=== PATIENT | male | born 1945 | race Caucasian/White ===

== ENCOUNTER 2016-08-29 13:34 | Observation (INO) | payer BC ==
--- NOTE | ~2016-08-29 | HP ---
History And Physical [place] [id number] [facility] [place]. [address] NAME: YURI AKINS : 49 STATUS : ADM Kevon PAT#: [id number] AGE: 71 ADM/REG DATE : 08/29/16 MR#: [id number] REPORT SERV DATE: 08/30/16 DICTATED BY: WILNER AMEZCUA DATE: 08/30/16 REPORT STATUS : Draft TRANSCRIBED BY: IMELDA DATE: 08/30/16 DATE OF ADMISSION: 08/29/2016 PSYCHOLOGIST: Ady Montes M.D. FRAMING CARPENTER: Enriqueta Kevin M.D. NEW PATIENT APPOINTMENT: 09/21/2016. CHIEF COMPLAINT: Heart racing. 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 The patient states that he has noticed his heart rate elevated since 08/28/2016, he was at a baseball game. He states he had forgotten to take his BuSpar and his Diovan during the game and that he noticed his heart rate was greater than 120. He and his went home, took his BuSpar and his Diovan, heart rate remained 120 plus, and his blood pressure was 160/100. He took clonidine 0.1 mg, at that time, he remained anxious. He states that his heart rate remained elevated at all day. He was able to fall asleep that evening, but when he awoke on 08/29/2016, his heart rate remained 125 beats per minute per his Fitbit. He went to the [facility], and was recommended that he come to the emergency room for further evaluation and treatment. In our emergency room, he was administered adenosine 6 mg IV with Cardizem bolus of 20 mg, and he converted back to sinus rhythm. The patient denies any chest pain, pressure, or tightness with this event. No shortness of breath, nausea, diaphoresis, dizziness, or belching. The patient denies any personal history of myocardial infarction, stroke, DVT, or pulmonary embolus. The patient denies any recent fever or chills. Describes rare episodes of palpitations most recently approximately five months ago, not evaluated or treated. No syncopal episodes. Denies PND or orthopnea. CHADS-VASc score of 2 for age and hypertension. PAST MEDICAL HISTORY: 1. Hypertension. 2. Anxiety. 3. Depression. 4. Cholesterol, followed by PCP with reported elevated triglycerides. 5. Denies diabetes. 6. History of prostate cancer status post prostatectomy. 7. History of [place]'s disease (no recurrence). 8. GERD. PAST SURGICAL HISTORY: 1. Prostatectomy. History And Physical [address] [address] NAME: YURI AKINS : 49 STATUS : ADM Kevon PAT#: [id number] AGE: 71 ADM/REG DATE : 08/29/16 MR#: [id number] REPORT SERV DATE: 08/30/16 DICTATED BY: WILNER AMEZCUA DATE: 08/30/16 REPORT STATUS : Draft TRANSCRIBED BY: IMELDA DATE: 08/30/16 2. Arthroscopic repair of the left knee. 3. Planned left total knee replacement in January 2017. SOCIAL HISTORY: He is with two children. 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 Tries to walk 2 miles every other day, but is somewhat limited by his left knee. Walks most recently one week ago without incident. Denies tobacco, alcohol, or illicits. FAMILY HISTORY: Mother with hypertension, of lung cancer. Father at the age of 89. REVIEW OF SYSTEMS: A 14-point review of systems was performed, significant for HPI including history of snoring with the sleep study recommending CPAP, improved with 20 pounds weight loss. Clonidine 0.1 mg p.r.n. Elevated blood pressure. Complaints of nausea, on Depakote. Home blood pressure of 140/80. Otherwise complete review of systems obtained and negative. ALLERGIES: ALLERGY TO CIPRO, STOMACH UPSET; LIPITOR, MUSCLE PAIN; CORN, GI; BUCKWHEAT, GI; AND MILK, LACTOSE INTOLERANT. HOME MEDICATIONS: Amlodipine 10 mg daily, aspirin 81 mg daily, Astelin spray daily, BuSpar 10 mg three times daily, vitamin D 1000 units daily, Klonopin 0.5 mg twice daily, Depakote ER 1500 mg nightly, Flonase spray p.r.n., Remeron 7.5 mg nightly, multivitamin daily, melatonin nightly, omega-3 daily, Diovan 320 mg nightly, and Zantac or Nexium p.r.n. PHYSICAL EXAMINATION: BLOOD PRESSURE: Bilateral blood pressures on arrival, right 141/90, left 122/79, this morning 126/69. PULSE: 51, RESPIRATORY RATE: 18, TEMPERATURE: 97.9, O2 saturation 97% on room air. HEIGHT: 5 feet 11 inches, WEIGHT: 228 pounds. BMI is 32. GENERAL: Cooperative, in no apparent distress. HEENT: Pupils 2 mm, sclera nonicteric. Nares patent. Moist mucous membranes. No xanthelasma. NECK: Trachea midline, no thyromegaly. No JVD. No bruits. LYMPH: No cervical lymphadenopathy. No supraclavicular lymphadenopathy. RESPIRATORY: Unlabored respirations. Breath sounds clear bilaterally to posterior auscultation. No wheezes or rhonchi. CARDIOVASCULAR: Regular rate. No murmur, rub or gallop appreciated. EXTREMITIES: Without edema. Pulses 2+ bilaterally. ABDOMEN: Soft, nontender, nondistended, normal bowel sounds auscultated throughout. No organomegaly. SKIN: Warm, dry extremities. No pallor, or cyanosis. PSYCHIATRIC: Appropriate affect. Alert, oriented x3. LABORATORY DATA: Troponin 0.47 and 0.43. TSH 3.210, free T4 of 1.03. BNP of 112.4, potassium 3.8, BUN 13, creatinine 1.16, glucose 124, and magnesium 2.0. WBC 11.2, hemoglobin 17.8, hematocrit 50.4, and platelet count 169,000. EKG; sinus bradycardia, IRBBB. LAD (previously atrial flutter, 2:1). History And Physical [address] [address] NAME: UYRI AKINS : 49 STATUS : ADM Kevon PAT#: [id number] AGE: 71 ADM/REG DATE : 08/29/16 MR#: [id number] REPORT SERV DATE: 08/30/16 DICTATED BY: WILNER AMEZCUA DATE: 08/30/16 REPORT STATUS : Draft TRANSCRIBED BY: MODL DATE: 08/30/16 Cath 11/2011 (Negus): Normal coronaries, myocardial bridge, mid LAD, EF of 65%. ASSESSMENT AND PLAN: 1. Atrial flutter, 2:1 conduction, now sinus rhythm. Check echocardiogram. Discontinue amlodipine. Begin Cardizem 120 mg daily. Continue Eliquis 5 mg twice daily. Cardiology followup and PCP follow up as scheduled. 2. Hypertension. Monitor blood pressure. Continue ARB. 3. Anxiety. Continue home medications. 4. Troponin 0.47 and 0.43. Remains flat and similar to two troponins of 2011, at which time, the gentleman underwent a cardiac catheterization revealing normal coronary arteries. 5. Anticoagulant. The patient will be discharged home on Eliquis 5 mg twice daily for CHADS-VASc score of 2. ARON/IMELDA FATOU Oropeza, BODY ROLLING MACHINE TENDER-BC / [id number] CC: FATOU Oropeza, BODY ROLLING MACHINE TENDER-BC MD Enriqueta Hunter M.D.
[~2016-08-29 13:34] MED LIST: ADALAT CC60 MG PO; BUSPAR10 PO; BUSPAR15 M1 PO; CAT1 PO; COZAAR100 MG PO; DEPAKOT500 PO; DIOV160 PO; GEODON20 PO; I20 PO; ILA60 PO; MOTRIN IB200 MG PO; NASONEX NAS; NEUR100 PO; NEUR600 PO; NORV5 PO; PRILOSEC40 MG PO; REM15 PO; T PO; VALIUM10 MG PO; VITAMIN D1000 UNI1 PO
[2016-08-29 13:54] LABS: BASOPHILS 0.2 %; BASOPHILS ABSOLUTE 0.02 10/3/uL (0.0-0.16); EOSINOPHILS 0.4 %; EOSINOPHILS ABSOLUTE 0.05 10/3/uL (0.0-0.53); HEMOGLOBIN 17.8 g/dL (13.6-17.8); IMMATURE GRANULOCYTES 0.3 %; IMMATURE GRANULOCYTES ABSOLUTE 0.03 10/3/uL (0.0-0.11); LYMPHOCYTES 25.7 %; LYMPHOCYTES ABSOLUTE 2.88 10/3/uL (0.67-4.30); MEAN CORPUS HGB CONC 35.3 g/dL (32.0-36.0); MEAN CORPUSCULAR HEMOGLOB 31.8 pg (26.0-34.0); MEAN CORPUSCULAR VOLUME 90.2 fL (80-100); MEAN PLATELET VOLUME 11.4 fL (9.2-13.0); MONOCYTES 9.7 %; MONOCYTES ABSOLUTE 1.09 10/3/uL (0.21-1.20); NEUTROPHILS 63.7 %; NEUTROPHILS ABSOLUTE 7.15 10/3/uL (2.02-8.40); PLATELET COUNT 169 10/3/uL (150-400); RBC DISTRIBUTION WIDTH 13.2 % (12.0-16.0); RED CELL COUNT 5.59 10/6/uL (4.7-6.1); WHITE BLOOD CELLS 11.2 10/3/uL (4.5-10.5)
[2016-08-29 13:55] LABS: HEMATOCRIT 50.4 % (40.0-51.0); MANUAL DIFF NO %
[2016-08-29 14:03] LABS: INTERNATIONAL NORMAL RATI 1.1 UNITS (-); PROTIME (NOT ORD) 14.4 SEC (12.0-14.5)
[2016-08-29 14:04] LABS: PARTIAL THROMBO TIME 40.1 SEC (22.5-37.2)
[2016-08-29 14:11] LABS: CHLORIDE, SERUM 112 MMOL/L (96-112); CO2 (CARBON DIOXIDE) 24 MMOL/L (24-34); CREATININE 1.16 MG/DL (0.70-1.30); GFR AFRICAN AMERICAN 74 ML/MIN (>=60); GFR NON AFRICAN AMERICAN 64 ML/MIN (>=60); POTASSIUM, SERUM 3.8 MMOL/L (3.5-5.3); SODIUM, SERUM 141 MMOL/L (135-148)
[2016-08-29 14:12] LABS: BUN (BLOOD UREA NITROGEN) 13 MG/DL (6-23); GLUCOSE, SERUM 124 MG/DL (60-99)
[2016-08-29 14:13] LABS: CHEST PAIN PROFILE TAT 0 Hrs 23 Mins; TROPONIN I 0.47 NG/ML (<0.05)
[2016-08-29] MEDS ORDERED: KLONO5 PO (16:03)
[2016-08-29] MEDS ORDERED: NORV10 PO (16:03)
[2016-08-29] MEDS ORDERED: BUSPAR10 PO (16:03)
[2016-08-29] MEDS ORDERED: DEPAKOTEER PO (16:11)
[2016-08-29] MEDS ORDERED: DIOVAN320 MG PO (16:12)
[2016-08-29] MEDS ORDERED: FLONASE NAS (16:12)
[2016-08-29] MEDS ORDERED: ASTELIN NAS (16:13)
[2016-08-29] MEDS ORDERED: REM15 PO (16:13)
[2016-08-29] MEDS ORDERED: ASAB PO (16:14)
[2016-08-29] MEDS ORDERED: CENTRUM PO (16:14)
[2016-08-29] MEDS ORDERED: MELATONIN PO (16:14)
[2016-08-29] MEDS ORDERED: OMEGA-3 OTC PO (16:15)
[2016-08-29] MEDS ORDERED: VITAMIN D1000 UNI1 PO (16:15)
[2016-08-29 20:32] LABS: ALBUMIN 3.8 G/DL (3.5-5.0); DIRECT BILIRUBIN 0.2 MG/DL (0.0-0.4); FREE T4 1.03 NG/DL (0.76-1.46); INDIRECT BILIRUBIN(NOT ORDER) 0.7 MG/DL (0.1-0.9); TOTAL BILIRUBIN 0.9 MG/DL (0-1.2); TOTAL PROTEIN 7.3 G/DL (6.0-8.5)
[2016-08-29 20:33] LABS: TROPONIN I 0.43 NG/ML (<0.05); ULTRASENSITIVE TSH 3.21 MCIU/ML (0.358-3.740)
[2016-08-30] MEDS ORDERED: ELIQUIS 5 MG TAB5 MG PO (11:05)
[2016-08-30] MEDS ORDERED: CARDCD120 PO (11:06)
== END 2016-08-30 11:41 | disposition home or self-care (01) ==
LOC: ER 13:34 → CDU1 16:13
PROVIDERS: Clinical Nurse Specialist; Emergency Medicine
DX: I48.92 Unspecified atrial flutter (principal); I10 Essential (primary) hypertension; F41.9 Anxiety disorder, unspecified; F32.9 Major depressive disorder, single episode, unspecified; K21.9 Gastro-esophageal reflux disease without esophagitis; L11.1 Transient acantholytic dermatosis [Grover]; Z90.79 Acquired absence of other genital organ(s); Z85.46 Personal history of malignant neoplasm of prostate; Z82.49 Family history of ischemic heart disease and other diseases of the circulatory system; Z80.1 Family history of malignant neoplasm of trachea, bronchus and lung; Z88.1 Allergy status to other antibiotic agents; Z88.8 Allergy status to other drugs, medicaments and biological substances; E73.9 Lactose intolerance, unspecified; Z91.018 Allergy to other foods; Z79.82 Long term (current) use of aspirin; Z79.51 Long term (current) use of inhaled steroids; Z79.899 Other long term (current) drug therapy; Z98.890 Other specified postprocedural states
CPT/HCPCS: 71020; 80048; 80076; 83735; 83880; 84439; 84443; 84484; 85025; 85610; 85730; 93005; 96374; 96375; 96376; 99285; A9270-GY; G0378; J0153